=== PATIENT | female | born 1985 | race Caucasian/White ===

== ENCOUNTER → 2020-07-31 14:01 | Outpatient (CLI) | payer SELFPAY ==
--- NOTE | 2020-07-31 | DI.US.S_ITS ---
ULTRASOUND OF RIGHT BREAST: 07/31/2020 CLINICAL: Palpable right breast lump. Comparison is made to exam dated: 07/31/2020 [facility]. Color flow and real-time ultrasound of the right breast were performed. Riggs scale images of the real-time examination were reviewed. There is a 2.6 cm x 1.8 cm x 1.4 cm oval cyst in the right breast at 2 o'clock posterior depth 2 cm from the nipple. This oval cyst is anechoic. This correlates as palpated, with mammography findings, and area of clinical concern. Color flow imaging demonstrates that there is no vascularity present. IMPRESSION: BENIGN There is no sonographic evidence of malignancy. The 2.6 cm x 1.8 cm x 1.4 cm oval cyst in the right breast is consistent with a simple cyst and is benign. Recommend clinical follow up for persistent or worsening symptoms, or development of any clinically suspicious findings. Recommend initiating routine screening mammograms at age 40. Findings and recommendations were conveyed to the patient during today's evaluation. This exam was interpreted at Station ID: [id number]. Electronically Signed By: Guille Hess M.D. aty/:07/31/2020 15:16:45 letter sent: Clinical Evaluation Ultrasound BI-RADS: 2 Benign
--- NOTE | 2020-07-31 | DI.MG.S_ITS ---
BILATERAL DIGITAL DIAGNOSTIC MAMMOGRAM 3D/2D: 07/31/2020 CLINICAL: Baseline exam. Right breast lump. No prior exams were available for comparison. The tissue of both breasts is extremely dense, which lowers the sensitivity of mammography. There is an oval equal density asymmetry with an obscured margin in the right breast at 2 o'clock posterior depth. This correlates with area of palpable concern as indicated by triangle skin marker. No other significant masses, calcifications, or other findings are seen in either breast. IMPRESSION: INCOMPLETE: NEEDS ADDITIONAL IMAGING EVALUATION The oval equal density asymmetry in the right breast resembles a cyst and is indeterminate. An ultrasound is recommended which is scheduled to immediately follow this exam. This exam was interpreted at Station ID: [id number]. NOTE: For mammograms, a report in lay terms will be sent to the patient. Approximately 15% of breast malignancies will not be visualized mammographically. In the management of a palpable breast mass, a negative mammogram must not discourage biopsy of a clinically suspicious lesion. Electronically Signed By: Guille Hess M.D. aty/:07/31/2020 15:14:48 ACR BI-RADS Category 0: Incomplete [id number]
== END ==
DX: R92.8 Other abnormal and inconclusive findings on diagnostic imaging of breast (principal); N60.01 Solitary cyst of right breast
CPT/HCPCS: 76642; 77066; G0279

== ENCOUNTER → 2021-11-23 10:35 | Outpatient (CLI) | payer OTHER, SELFPAY ==
--- NOTE | 2021-11-23 | DI.US.S_ITS ---
PROCEDURE: US OB LIMITED INDICATIONS: POSITION CHECK OUTSIDE/PRIOR DATING DATA: Last menstrual period (LMP): March 10, 2021. LMP-based estimated date of delivery (NHUNG): December 15, 2021. TECHNIQUE: Real-time scanning was performed of the fetus, with image documentation. Endovaginal scanning: Not performed COMPARISON: None. FINDINGS: A single living intrauterine gestation is present. Presentation: Vertex Placenta: Placental position is anterior, without previa. Amniotic fluid index: 14.9 cm , normal range is 5-24 cm. The largest vertical pocket measures 4.7 cm. heart rate: 157 beats per minute. IMPRESSION: Single living intrauterine gestation with vertex presentation. Anterior placenta without evidence for placenta previa. Dictated by: Guille Hess M.D. on 11/23/2021 at 13:57 Approved by: Guille Hess M.D. on 11/23/2021 at 13:59
== END ==
PROVIDERS: PCP Internal Medicine; Referring Provider Midwife; Visit Provider Midwife
DX: Z34.03 Encounter for supervision of normal first pregnancy, third trimester (principal); Z3A.36 36 weeks gestation of pregnancy
CPT/HCPCS: 76815

== ENCOUNTER → 2021-12-24 08:18 | Outpatient (CLI) | payer OTHER, SELFPAY ==
--- NOTE | 2021-12-24 | DI.US.S_ITS ---
PROCEDURE: US OB BIOPHYSICAL PROFILE INDICATIONS: PRINCE/BPP OUTSIDE/PRIOR DATING DATA: Last menstrual period (LMP): 03/10/2021. LMP-based estimated date of delivery (NHUNG): 12/15/2021. First dating scan (date and location): Not available Estimated date of delivery (NHUNG) from first dating scan: Not available. TECHNIQUE: Real-time scanning was performed of the fetus, with image documentation and biometric measurements. Biophysical profile was also obtained. COMPARISON: [facility], OB LIMITED, 11/23/2021, 10:52. FINDINGS: General: A single living intrauterine gestation is present. Presentation: Vertex. Placenta: Placental position is anterior , without previa. Amniotic fluid index: 9.7 cm, normal range is 5-24 cm. heart rate: 144 beats per minute. Maternal cervical canal: Not visualized Estimated gestational age based on LMP: 41 weeks 2 days Biophysical profile: Tone: 2 points. Movement: 2 points. Respiration: 2 points. Largest pocket of fluid: 2 points. IMPRESSION: Single live intrauterine . BP 04/08 We strive to produce accurate, complete, and clear reports of imaging services. To assist us in improving patient care, this report was composed using standard report templates and voice recognition software. Therefore, it may contain abnormal punctuation, insertions and/or omissions. Occasional wrong-word or sound-alike substitutions may occur. Though we review the report and make efforts to correct it, we do recommend that the report be read carefully in proper context to recognize any text inaccuracies. Dictated by: Kay Finn M.D. on 12/24/2021 at 13:00 Approved by: Kay Finn M.D. on 12/24/2021 at 13:03
== END ==
PROVIDERS: PCP Internal Medicine; Referring Provider Midwife; Visit Provider Midwife
DX: O48.0 Post-term pregnancy (principal); Z3A.41 41 weeks gestation of pregnancy
CPT/HCPCS: 76819

== ENCOUNTER → 2022-08-27 15:00 | Outpatient (CLI) | payer OTHER, SELFPAY | PROVIDERS: PCP Internal Medicine; Visit Provider Registered Nurse | DX: N89.8 Other specified noninflammatory disorders of vagina (principal) | CPT/HCPCS: 87210 ==

== ENCOUNTER 2023-10-30 05:47 | Inpatient (IN) | payer OTHER, SELFPAY ==
[2023-10-30 06:49] VITALS: BP 114/75
[2023-10-30 06:52] LABS: Add Manual Diff / Slide Review NO; Basophils Absolute Auto 0 /uL (0-100); Basophils Percent Auto 0.4 % (0-2); Eosinophils Absolute Auto 100 /uL (0-450); Eosinophils Percent Auto 0.8 % (2-4); Hemoglobin 12.9 g/dL (12.0-16.0); Lymphocytes Absolute Auto 2500 /uL (1100-4500); Lymphocytes Percent Auto 23.4 % (25-40); Mean Corpuscular HGB Conc 33.2 % (30-36); Mean Corpuscular Hemoglobin 28.5 PG (26-34); Mean Corpuscular Volume 85.9 fL (80-100); Monocytes Absolute Auto 700 /uL (0-900); Monocytes Percent Auto 6.4 % (3-14); Neutrophils Absolute Auto 7400 /uL (1500-7000); Platelet Count 274 X10^3/uL (150-400); Red Blood Cell Count 4.54 X10^6/uL (4.0-5.2); Red Cell Distribution Width 13.4 % (11.6-14.8); White Blood Cell Count 10.8 X10^3/uL (4.5-11.0)
[2023-10-30] MEDS: CITRIC ACID/SODIUM CITRATE 15 ML SOLUTION 30 ML PO (07:26)
--- NOTE | 2023-10-30 07:40 | PM.OBHP.IH.1 ---
OB HPI Date/Time Date of admission: 10/30/23 Date Patient Seen: 10/30/23 Time Patient Seen: 07:41 History of Present Condition Chief complaint: Repeat NHUNG Calculator Estimated Delivery Date Method Current WG Current Estimate 10/31/23 Manual 39w 6d Estimated Gestational Age (weeks): 39w6d : 2 Para: 1 Narrative: 38yo at 39w6d here for scheduled repeat . Pt denies any vaginal bleeding, LOF, contractions. She is feeling her baby move regularly. No known complications with her . She declined 2nd trimester ultrasound. Dating criteria OB: LMP confirmed by 1st trimester US Ultrasounds: normal 1st trimester US Obstetrical complications: none Medical complications OB: none Preadmission Labs Last OB Lab Results: Blood Type O Positive 10/30/23 06:30 Antibody Screen Negative 10/30/23 06:30 Hematocrit 39.0 % (36-46) 10/30/23 06:30 Hemoglobin 12.9 g/dL (12.0-16.0) 10/30/23 06:30 External Labs Blood type OB HPI: O (+) positive -: Antibody screen: negative, HBsAG: negative, RPR/VDLR: negative and GBS status: negative -: Rubella: immune and Varicella: immune PAP: Normal Prior (ies) Past Pregnancies Del. Date GA/Weeks Labor Lgth Wt Sex Route Outcome Anesthesia Place Delv Breastfeed Preg Comp Name 01/01/22 42.4 Female live - full term spinal [place] none Evaluation Evaluation Baseline heart rate: 145 Variability: Minimal (3-5) monitor accelerations: Present Monitor Decelerations: Absent Status: Category ll PFSH Medical History Oral herpes Surgical History (Updated 08/12/23 @ 11:55 by Eli Miller MD) History of breast surgery (~2015) H/O LEEP (~2007) Previous section Social History household members: spouse and children Smoking Status: Never smoker Meds Home Medications and Allergies Home Medications Medication Instructions Recorded Confirmed Type No Known Home Medications 08/27/22 08/12/23 History Allergies Allergy/AdvReac Type Severity Reaction Status Date / Time Penicillins Allergy Mild Rash Verified 08/12/23 10:20 OB Exam Resp Effort & Inspection: normal respiratory effort Auscultation: clear to auscultation bilaterally Cardio Rate: regular rate Rhythm: regular rhythm Heart Sounds: S1 normal, S2 normal and no murmurs GI Inspection: non-distended Palpation: Yes soft and No tender Other: breech, placenta posterior fundal on bedside ultrasound Objective Labs 10/30/23 06:30 Labs: Laboratory Results - last 24 hr 10/30/23 06:30 WBC 10.8 RBC 4.54 Hgb 12.9 Hct 39.0 MCV 85.9 MCH 28.5 MCHC 33.2 RDW 13.4 Plt Count 274 Neut % (Auto) 69.0 Lymph % (Auto) 23.4 L Hard[place] % (Auto) 6.4 Eos % (Auto) 0.8 L Baso % (Auto) 0.4 Neut # (Auto) 7400 H Lymph # (Auto) 2500 Hardin # (Auto) 700 Eos # (Auto) 100 Baso # (Auto) 0 Blood Type O Positive Antibody Screen Negative Assessment and Plan Assessment and Plan Assessment and Plan narrative: 38yo at 39w6d here for scheduled repeat . No complications with , pt declined 2nd trimester ultrasound. GBS negative, Rh positive. Pt consented for surgery previously in clinic. Risks including but not limited to bleeding/hemorrhage, infection, injury to other organs such as bowel/bladder, injury to fetus were discussed. The pt agrees to blood transfusion if medically necessary. Consent was signed previously. Pt without questions today. Pt will receive 2g Ancef prior to surgery. SCDs to be placed.
--- NOTE | 2023-10-30 07:45 | PM.PROC.1 ---
Procedures Date/Time Date of procedure: 10/30/23 Time of procedure: 07:45 General Procedure description: Tongue And Groove Machine Setter Documentation I assisted the OB construction quality control manager in the section for this patient. My responsibilities included retracting and suctioning, providing fundal pressure during delivery and following with suture during closure. Please see the OB's note for details of the surgery.
--- NOTE | 2023-10-30 07:45 | PM.PREOP ---
Pre-operative Note Interval Note History & Physical reviewed/Exam performed by Physician: Yes Changes to H&P: No
[2023-10-30] MEDS: CEFAZOLIN 2 GM/100 ML PREMIX 100 ML IV (08:13)
[2023-10-30] MEDS: ACETAMINOPHEN IV 1,000 MG/100 ML VIAL 400 MG IV (08:20)
--- NOTE | 2023-10-30 08:31 | SUR.OPER ---
Supine on padded OR bed, head on pillow, arms secured on padded arm boards at <90 degrees abduction, legs uncrossed, safety belt at thigh, tape over blanket over lower legs.
--- NOTE | 2023-10-30 08:38 | SUR.OPER ---
Delivered viable baby girl at 0836. Cord blood tubes x2 given to L&D nurse. Placenta given to L&D nurse.
[2023-10-30 09:33] VITALS: BP 111/57; PULSE 75; RESP 16; TEMP 36.2; O2SAT 98
--- NOTE | 2023-10-30 09:33 | PM.OBCS.1 ---
Operative Date/Time/Diagnoses Date of procedure: 10/30/23 Time of procedure: 07:45 Pre-op diagnosis: 39w6d gestation GBS negative Rh positive Hx of prior Post-op diagnosis: same Procedure & Clinicians Procedure: Repeat Same procedure as scheduled: Yes Indications: Hx of prior Surgeon: Eli Miller Click Yes if Unassisted: No Integration Specialist: Sandra Ruvalcaba Anesthesia Type: Spinal Operative Notes Findings: Normal uterus, ovaries, and tubes Closure Type: primary Specimen(s): cord blood Intraoperative meds administered: Duramorph, Ketorolac and Pitocin Applied: Catheter Estimated Blood Loss (mL): 750 Blood products transfused: none Procedure in detail: OPERATIVE COURSE: The patient was taken to the operating room where spinal anesthesia was placed. She was then prepared and draped in the normal sterile fashion in the dorsal supine position with a leftward tilt. Anesthesia was tested and found to be adequate. A Pfannensteil skin incision was then made with the scalpel and carried through to the underlying layer of fascia with the scalpel. The fascia was incised in the midline and the incision extended laterally with the Campo scissors. The superior aspect of the fascial incision was then grasped with Dior clamps, elevated with the help of the surgical instrument repair specialist, and the underlying rectus muscles dissected off bluntly and sharply where needed. Attention was then turned to the inferior aspect of the incision which, in a similar fashion, was grasped, tented up with Dior clamps, and the rectus muscle dissected off bluntly and sharply with Campo scissors. The rectus muscles were then in the midline, and the peritoneum was identified and entered bluntly. The peritoneal incision was then extended with good visualization of the bladder. Retraction was provided by the surgical instrument repair specialist. The bladder blade was then inserted and the vesicouterine peritoneum identified, grasped with pick-ups and entered sharply with the Metzenbaum scissors. The incision was then extended laterally and the bladder flap created digitally. The bladder blade was then reinserted and the lower uterine segment incised in a transverse fashion with the scalpel, with the surgical instrument repair specialist providing suction. The uterine incision was then extended superolaterally by pulling superolaterally on both sides. Membranes were ruptured and fluid was clear. The bladder blade was removed and the infants hand delivered. This was replaced back into the uterus, and the baby was flipped to breech presentation for delivery. The infants legs were delivered, and then the anterior arm. The rest of the was easily delivered. The nose and mouth were suctioned with bulb suction and the cord was clamped and cut after 1 minute. The infant was handed off to the waiting nursing staff. Cord blood was collected for Rh status. The placenta was then delivered by manual extraction. The uterus was then cleared of all clots and debris. The uterine incision was repaired with O-Vicryl in a running, locked fashion. A second layer of the same suture was used for imbrication. A [id number] with O-Vicryl was placed centrally on the incision for excellent hemostasis. 2-O Chromic was used to close the bladder flap. The gutters were cleared of all clots. Hysterotomy was investigated and found to be hemostatic. The peritoneum was closed with 3-O Vicryl. The fascia was reapproximated with O Vicryl in a running fashion. The subcutaneous tissue was reapproximated with 3-O Vicryl. The skin was closed with 4-O Vicryl. The surgical instrument repair specialist helped with retraction during closures. SPONGE AND NEEDLE COUNTS: Correct x3. DRESSING: Aquacel ANTICOAGULATION: SCDs applied prior to Surgery Preop antibiotics given (see MAR). The patient was taken to recovery room having tolerated procedure well. Baby 1: Infant Gender: Female Position: Transverse Placental Delivery Description: Manual Removal Cord Vessel Description: 3 Vessels and Nuchal Cord (x1) score (1 min): 9 score (5 min): 9 weight: 7 lb 2.711 oz Post-operative Condition: stable Disposition: PACU Aftercare: routine postop
[2023-10-30 09:38] VITALS: BP 109/75; PULSE 73; RESP 16; O2SAT 98
[2023-10-30 09:43] VITALS: BP 104/66; PULSE 72; RESP 16; TEMP 36.2; O2SAT 98
[2023-10-30] MEDS: ONDANSETRON 4 MG/2 ML INJ IV ×2 (11:02→18:33)
[2023-10-30] MEDS: METOCLOPRAMIDE 10 MG/2 ML INJ IV (12:02)
[2023-10-30] MEDS: ACETAMINOPHEN 325 MG TABLET 650 MG PO ×2 (14:45→20:48)
[2023-10-30] MEDS: KETOROLAC 30 MG/ML VIAL IV ×2 (16:41→23:08)
[2023-10-31 03:10] LABS: Add Manual Diff / Slide Review NO; Basophils Absolute Auto 0 /uL (0-100); Basophils Percent Auto 0.3 % (0-2); Eosinophils Absolute Auto 100 /uL (0-450); Eosinophils Percent Auto 0.8 % (2-4); Hematocrit 31.4 % (36-46); Hemoglobin 10.6 g/dL (12.0-16.0); Lymphocytes Absolute Auto 2300 /uL (1100-4500); Lymphocytes Percent Auto 20.2 % (25-40); Mean Corpuscular HGB Conc 33.8 % (30-36); Mean Corpuscular Hemoglobin 29.4 PG (26-34); Monocytes Absolute Auto 800 /uL (0-900); Monocytes Percent Auto 7.5 % (3-14); Neutrophils Absolute Auto 8000 /uL (1500-7000); Neutrophils Percent Auto 71.2 % (50-75); Platelet Count 208 X10^3/uL (150-400); Red Blood Cell Count 3.61 X10^6/uL (4.0-5.2); Red Cell Distribution Width 13.5 % (11.6-14.8); White Blood Cell Count 11.2 X10^3/uL (4.5-11.0)
[2023-10-31] MEDS: ACETAMINOPHEN 325 MG TABLET 650 MG PO ×2 (03:11→09:57)
[2023-10-31] MEDS: KETOROLAC 30 MG/ML VIAL IV (04:58)
--- NOTE | 2023-10-31 09:55 | P.DS_ITS ---
Discharge Providers Provider Date of admission: 10/30/23 05:47 Discharge Date: 10/31/23 Primary care physician: YANCY Pierre Consults: 10/30/23 10:13 Consult to [place] [facility] Routine Comment: Discharge provider: Eli Miller MD Summary Hospital Course Date Patient Seen: 10/31/23 Diagnoses: 39w6d gestation GBS negative Rh positive Hx of prior Hospital Course: The pt presented for scheduled repeat . The surgery was without complications, and the pt had a viable baby girl. , there were no complications. At the time of discharge she was voiding, ambulating, and passing flatus without difficulty. Her lochia was decreasing appropriately. Her pain was well controlled. She was with good latch. She will f/u in 1 week for incision check with her primary OB provider. Peripartum Data Delivery Method: Section Procedures: complications: none 1: Gender: Female Disposition of : home Time Spent with Patient Time attestation: Total time spent providing and/or coordinating discharge services: Objective Labs 10/31/23 03:00 Labs: Laboratory Results - last 24 hr 10/31/23 03:00 WBC 11.2 H RBC 3.61 L Hgb 10.6 L Hct 31.4 L MCV 87.0 MCH 29.4 MCHC 33.8 RDW 13.5 Plt Count 208 Neut % (Auto) 71.2 Lymph % (Auto) 20.2 L Archer % (Auto) 7.5 Eos % (Auto) 0.8 L Baso % (Auto) 0.3 Neut # (Auto) 8000 H Lymph # (Auto) 2300 [place] # (Auto) 800 Eos # (Auto) 100 Baso # (Auto) 0 Exam Vital Signs (past 8 hours): Oxygen Delivery Method Room Air Resp Auscultation: clear to auscultation bilaterally Cardio Rate: regular rate Rhythm: regular rhythm Heart Sounds: S1 normal, S2 normal and no murmurs GI Inspection: non-distended and incision (dressing c/d/i) Palpation: soft, No guarding and tender (appropriately tender) Auscultation: normal bowel sounds Other: fundus firm and below the umbilicus Extrem Right upper extremity: no edema Discharge Plan Discharge Plan Patient Disposition: Home Discharge orders & Medications Prescriptions: New acetaminophen 325 mg Tablet 650 mg PO Q6H Qty: 60 0RF docusate sodium 100 mg Capsule 100 mg PO DAILY Qty: 30 0RF ibuprofen 600 mg Tablet 600 mg PO Q6H Qty: 60 0RF oxycodone 5 mg Tablet 5 mg PO Q4H PRN (Reason: Pain, Moderate (4-6)) Qty: 30 0RF Follow up/Referrals: Nidia Cole CNM [[facility]] - (Please follow up in-person with [facility] (Nidia and Sandra) on November 05 @ 2:30PM for a dressing removal. You have a 2 week telehealth appointment over the phone on November 11 @ 2:15pm You also have a 6 week, in-person follow up scheduled for December 11, @ 1000. Please call [facility] with any questions you have ) Diet/Activity/Treatments Diet: Diet as Tolerated and Regular Skin/Wound/Dressing Care Report to your healthcare provider any signs of infection, such as:: chills, fever, increased pain and unusual drainage Visit Report/Discharge Packet Instructions: DI for Stand Alone Forms: Discharge: Care, Patient Portal/API, Stroke Signs & Symptoms Discharge Data Primary Care Provider: Simona Perez Discharges patient from system. Discharge Date/Time: 10/31/23 12:05
[2023-10-31] MEDS: PRENATAL VIT,CALC/IRON/FOLIC 1 TABLET 1 TAB PO (09:57)
[2023-10-31] MEDS: DOCUSATE 100 MG CAPSULE PO (09:58)
[2023-10-31 12:53] VITALS: BP 111/67; PULSE 65; RESP 16; TEMP 36.7
== END 2023-10-31 12:05 | disposition home or self-care (01) | DRG 788 ==
PROVIDERS: Admitting Provider Family Medicine; PCP Internal Medicine; Referring Provider Family Medicine; Visit Provider Family Medicine
PROC: 10D00Z1 Extraction of Products of Conception, Low, Open Approach (ICD-10-PCS; CPT 59514; principal; 2023-10-30 07:45)
DX: O34.211 Maternal care for low transverse scar from previous cesarean delivery (principal); Z3A.39 39 weeks gestation of pregnancy; Z37.0 Single live birth
CPT/HCPCS: 36415; 59050; 59514; 85025; 86850; 86900; 86901; J0136; J0690; J1100; J1885; J2274; J2405; J2765

== ENCOUNTER → 2024-03-29 10:24 | Outpatient (CLI) | payer OTHER, SELFPAY | PROVIDERS: PCP Internal Medicine; Referring Provider Dermatology; Visit Provider Dermatology | DX: Z08 Encounter for follow-up examination after completed treatment for malignant neoplasm (principal); Z85.820 Personal history of malignant melanoma of skin | CPT/HCPCS: 36415 ==